=== PATIENT | female | born 1950 | race Caucasian/White ===

== ENCOUNTER → 2018-07-04 12:38 | Outpatient (CLI) | payer MEDICARE, SELFPAY ==
[2018-07-04 13:25] LABS: Add Manual Diff / Slide Review NO; Basophils Percent Auto 1.1 % (0-2); Eosinophils Percent Auto 2.4 % (2-4); Hematocrit 40.9 % (36-46); Hemoglobin 13.7 g/dL (12.0-16.0); Lymphocytes Percent Auto 34.2 % (25-40); Mean Corpuscular HGB Conc 33.4 % (30-36); Mean Corpuscular Volume 95.6 fL (80-100); Monocytes Percent Auto 7.5 % (3-14); Neutrophils Absolute Auto 3800 /uL (3000-5900); Neutrophils Percent Auto 54.8 % (50-75); Platelet Count 301 X10^3/uL (150-400); Red Blood Cell Count 4.28 X10^6/uL (4.0-5.2); Red Cell Distribution Width 14.4 % (11.6-14.8)
[2018-07-04 13:51] LABS: Alanine Aminotransferase 36 IU/L (9-52); Albumin 3.9 g/dL (3.5-5.0); Albumin Globulin Ratio 1.4 (1.0-2.8); Alkaline Phosphatase 68 U/L (38-126); Aspartate Aminotransferase 39 IU/L (14-36); BUN Creatinine Ratio 22.9 (6-22); Bilirubin Total 0.5 mg/dL (0.2-1.3); Blood Urea Nitrogen 16 mg/dL (7-17); Calcium 8.7 mg/dL (8.4-10.2); Carbon Dioxide 28 mmol/L (22-32); Chloride 105 mmol/L (98-107); Estimated Glomerular Filt Rate > 60.0 mL/min (>60); Globulin 2.8 g/dL (1.7-4.1); Glucose 92 mg/dL (80-110); HEMOLYSIS < 15 (0-50); Potassium 4.4 mmol/L (3.4-5.1); Sodium 144 mmol/L (137-145); Total Protein 6.7 g/dL (6.3-8.2)
[2018-07-04 13:52] LABS: C-Reactive Protein Quant < 0.5 mg/dL (<1.0)
== END ==
PROVIDERS: Family Provider Internal Medicine; Visit Provider Internal Medicine Rheumatology
DX: Z79.899 Other long term (current) drug therapy (principal)
CPT/HCPCS: 36415; 80053; 85025; 86140

== ENCOUNTER → 2018-07-17 10:18 | Outpatient (CLI) | payer MEDICARE, SELFPAY ==
--- NOTE | 2018-07-17 | DI.MG.S_ITS ---
BILATERAL DIGITAL SCREENING MAMMOGRAM 3D/2D WITH CAD: 07/17/2018 CLINICAL: Routine screening. Family history of breast cancer. Comparison is made to exams dated: 05/18/2017 mammogram, 03/06/2016 mammogram - [facility], and 03/02/2014 mammogram - [facility]. The tissue of both breasts is heterogeneously dense. This may lower the sensitivity of mammography. Current study was also evaluated with a Computer Aided Detection (CAD) system. No significant masses, calcifications, or other findings are seen in either breast. There has been no significant interval change. IMPRESSION: NEGATIVE There is no mammographic evidence of malignancy. A 1 year screening mammogram is recommended. This exam was interpreted at Station ID: [id number]. NOTE: For mammograms, a report in lay terms will be sent to the patient. Approximately 15% of breast malignancies will not be visualized mammographically. In the management of a palpable breast mass, a negative mammogram must not discourage biopsy of a clinically suspicious lesion. Electronically Signed By: Dolores jones/kristen:07/17/2018 10:49:25 letter sent: Normal Exam ACR BI-RADS Category 1: Negative 3341F
== END ==
PROVIDERS: Family Provider Internal Medicine
DX: Z12.31 Encounter for screening mammogram for malignant neoplasm of breast (principal); Z80.3 Family history of malignant neoplasm of breast
CPT/HCPCS: 77063; 77067

== ENCOUNTER → 2019-06-17 12:04 | Outpatient (CLI) | payer MEDICARE, SELFPAY ==
[2019-06-17 12:32] LABS: Add Manual Diff / Slide Review NO; Basophils Absolute Auto 100 /uL (0-100); Basophils Percent Auto 1.1 % (0-2); Eosinophils Absolute Auto 200 /uL (0-450); Eosinophils Percent Auto 2.9 % (2-4); Hematocrit 38.6 % (36-46); Hemoglobin 13.2 g/dL (12.0-16.0); Lymphocytes Absolute Auto 2400 /uL (1100-4500); Lymphocytes Percent Auto 36.9 % (25-40); Mean Corpuscular HGB Conc 34.2 % (30-36); Mean Corpuscular Hemoglobin 31.9 PG (26-34); Mean Corpuscular Volume 93.3 fL (80-100); Monocytes Absolute Auto 500 /uL (0-900); Monocytes Percent Auto 7.7 % (3-14); Neutrophils Absolute Auto 3400 /uL (1500-7000); Neutrophils Percent Auto 51.4 % (50-75); Platelet Count 256 X10^3/uL (150-400); Red Blood Cell Count 4.14 X10^6/uL (4.0-5.2); Red Cell Distribution Width 14.5 % (11.6-14.8); White Blood Cell Count 6.6 X10^3/uL (4.5-11.0)
[2019-06-17 12:53] LABS: Alanine Aminotransferase 31 IU/L (9-52); Albumin 3.7 g/dL (3.5-5.0); Albumin Globulin Ratio 1.4 (1.0-2.8); Alkaline Phosphatase 74 U/L (38-126); Aspartate Aminotransferase 31 IU/L (14-36); Bilirubin Total 0.5 mg/dL (0.2-1.3); Blood Urea Nitrogen 15 mg/dL (7-17); C-Reactive Protein Quant 0.5 mg/dL (<1.0); Calcium 9.3 mg/dL (8.4-10.2); Carbon Dioxide 29 mmol/L (22-32); Chloride 104 mmol/L (98-107); Estimated Glomerular Filt Rate > 60.0 mL/min (>60); Globulin 2.6 g/dL (1.7-4.1); Glucose 96 mg/dL (80-110); HEMOLYSIS < 15 (0-50); Potassium 4.3 mmol/L (3.4-5.1); Sodium 139 mmol/L (137-145); Total Protein 6.3 g/dL (6.3-8.2)
== END ==
PROVIDERS: Family Provider Internal Medicine; PCP Internal Medicine; Visit Provider Internal Medicine Rheumatology
DX: M05.79 Rheumatoid arthritis with rheumatoid factor of multiple sites without organ or systems involvement (principal); Z79.899 Other long term (current) drug therapy
CPT/HCPCS: 36415; 80053; 85025; 86140

== ENCOUNTER → 2019-06-30 07:52 | Outpatient (CLI) | payer MEDICARE, SELFPAY ==
--- NOTE | 2019-06-30 | DI.NM.S_ITS ---
PROCEDURE: NM GASTRIC EMPTYING STUDY RADIOPHARMACEUTICAL: 1.0 mCi Tc-99m sulfur colloid in an egg sandwich. INDICATIONS: Nausea with vomiting, unspecified TECHNIQUE: A Tc-99m labeled sulfur colloid labeled egg sandwich or oatmeal was served to the patient. Anterior and posterior planar images of the abdomen were obtained at 0 minutes and 30 minutes, then at hourly intervals up to 4 hours. The patient was upright and ambulating during the interval. COMPARISON: None. FINDINGS: The stomach has normal size, morphology, and position. There is normal emptying of solid gastric contents from the stomach by visual inspection. No gastroesophageal reflux is visualized. The percentage of tracer retained at specific time points are as follows: Time point Percent gastric retention Normal range 30 minutes 91% 70% or more 1 hour 67% 30% to 90% 2 hours 27% 60% or less 3 hours 6% 30% or less 4 hours - 10% or less IMPRESSION: Normal gastric emptying study. Dictated by: Lisha Boykin M.D. on 06/30/2019 at 13:17 Approved by: Lisha Boykin M.D. on 06/30/2019 at 13:20
== END ==
PROVIDERS: Family Provider Internal Medicine Rheumatology; PCP Internal Medicine; Visit Provider Internal Medicine
DX: R11.2 Nausea with vomiting, unspecified (principal)
CPT/HCPCS: 78264; A9541

== ENCOUNTER → 2019-09-16 12:10 | Outpatient (CLI) | payer MEDICARE, SELFPAY ==
[2019-09-16 13:29] LABS: Add Manual Diff / Slide Review NO; Basophils Absolute Auto 100 /uL (0-100); Basophils Percent Auto 1.9 % (0-2); Eosinophils Absolute Auto 200 /uL (0-450); Eosinophils Percent Auto 2.5 % (2-4); Hematocrit 38.9 % (36-46); Hemoglobin 13.1 g/dL (12.0-16.0); Lymphocytes Absolute Auto 2000 /uL (1100-4500); Lymphocytes Percent Auto 32.2 % (25-40); Mean Corpuscular HGB Conc 33.8 % (30-36); Mean Corpuscular Hemoglobin 32.1 PG (26-34); Monocytes Absolute Auto 500 /uL (0-900); Monocytes Percent Auto 8.7 % (3-14); Neutrophils Absolute Auto 3400 /uL (1500-7000); Neutrophils Percent Auto 54.7 % (50-75); Platelet Count 269 X10^3/uL (150-400); Red Blood Cell Count 4.09 X10^6/uL (4.0-5.2); White Blood Cell Count 6.2 X10^3/uL (4.5-11.0)
[2019-09-16 14:22] LABS: Alanine Aminotransferase 26 IU/L (<35); Albumin 3.6 g/dL (3.5-5.0); Albumin Globulin Ratio 1.2 (1.0-2.8); Alkaline Phosphatase 76 U/L (38-126); Aspartate Aminotransferase 33 IU/L (14-36); BUN Creatinine Ratio 24.3 (6-22); Bilirubin Total 0.4 mg/dL (0.2-1.3); Blood Urea Nitrogen 17 mg/dL (7-17); C-Reactive Protein Quant 0.6 mg/dL (<1.0); Calcium 9.1 mg/dL (8.4-10.2); Carbon Dioxide 27 mmol/L (22-32); Chloride 105 mmol/L (98-107); Estimated Glomerular Filt Rate > 60.0 mL/min (>60); Globulin 2.9 g/dL (1.7-4.1); Glucose 90 mg/dL (80-110); HEMOLYSIS < 15 (0-50); Potassium 5.1 mmol/L (3.4-5.1); Sodium 139 mmol/L (137-145); Total Protein 6.5 g/dL (6.3-8.2)
== END ==
PROVIDERS: PCP Internal Medicine; Visit Provider Internal Medicine Rheumatology
DX: M05.79 Rheumatoid arthritis with rheumatoid factor of multiple sites without organ or systems involvement (principal); Z79.899 Other long term (current) drug therapy
CPT/HCPCS: 36415; 80053; 85025; 86140

== ENCOUNTER → 2020-01-19 07:14 | Outpatient (CLI) | payer MEDICARE, SELFPAY ==
[2020-01-19 07:39] LABS: Add Manual Diff / Slide Review NO; Basophils Absolute Auto 100 /uL (0-100); Basophils Percent Auto 0.8 % (0-2); Eosinophils Absolute Auto 200 /uL (0-450); Eosinophils Percent Auto 2.9 % (2-4); Hematocrit 42.3 % (36-46); Hemoglobin 14.2 g/dL (12.0-16.0); Lymphocytes Absolute Auto 3500 /uL (1100-4500); Lymphocytes Percent Auto 41.3 % (25-40); Mean Corpuscular HGB Conc 33.7 % (30-36); Mean Corpuscular Hemoglobin 32.1 PG (26-34); Mean Corpuscular Volume 95.2 fL (80-100); Monocytes Absolute Auto 600 /uL (0-900); Monocytes Percent Auto 7.7 % (3-14); Neutrophils Absolute Auto 4000 /uL (1500-7000); Neutrophils Percent Auto 47.3 % (50-75); Platelet Count 311 X10^3/uL (150-400); Red Blood Cell Count 4.44 X10^6/uL (4.0-5.2); Red Cell Distribution Width 14.7 % (11.6-14.8); White Blood Cell Count 8.4 X10^3/uL (4.5-11.0)
[2020-01-19 07:54] LABS: Alanine Aminotransferase 27 IU/L (<35); Albumin Globulin Ratio 1.3 (1.0-2.8); Alkaline Phosphatase 93 U/L (38-126); Aspartate Aminotransferase 41 IU/L (14-36); BUN Creatinine Ratio 26.2 (6-22); Bilirubin Total 0.4 mg/dL (0.2-1.3); Blood Urea Nitrogen 17 mg/dL (7-17); Carbon Dioxide 25 mmol/L (22-32); Chloride 106 mmol/L (98-107); Estimated Glomerular Filt Rate > 60.0 mL/min (>60); Glucose 111 mg/dL (80-110); HEMOLYSIS < 15 (0-50); Potassium 4.5 mmol/L (3.4-5.1); Sodium 139 mmol/L (137-145)
[2020-01-19 07:55] LABS: C-Reactive Protein Quant < 0.5 mg/dL (<1.0)
== END ==
PROVIDERS: PCP Internal Medicine; Referring Provider Internal Medicine Rheumatology; Visit Provider Internal Medicine Rheumatology
DX: M05.79 Rheumatoid arthritis with rheumatoid factor of multiple sites without organ or systems involvement (principal); Z79.899 Other long term (current) drug therapy
CPT/HCPCS: 36415; 80053; 85025; 86140

== ENCOUNTER → 2020-02-17 08:07 | Outpatient (CLI) | payer MEDICARE, SELFPAY ==
--- NOTE | 2020-02-17 | DI.RAD.S_ITS ---
PROCEDURE: XR LUMBAR SPINE 2-3V INDICATIONS: Sciatica, right side TECHNIQUE: 3 views of the lumbar spine were acquired. COMPARISON: None. FINDINGS: Bones: 5 [id number] vertebrae are present. There is normal bony alignment. No acute vertebral body compression fractures. Multilevel spondylitic changes and facet arthrosis. Findings are most severe at L5-S1. No suspicious bony lesions. Soft tissues: Overlying bowel gas pattern is normal. No suspicious soft tissue calcifications. IMPRESSION: Lumbar spine without acute radiographic abnormalities. Multilevel lumbar spondylosis most severe at L5-S1. Dictated by: Zain Ren M.D. on 02/17/2020 at 10:01 Approved by: Zain Ren M.D. on 02/17/2020 at 10:02
== END ==
PROVIDERS: PCP Internal Medicine; Referring Provider Internal Medicine; Visit Provider Internal Medicine
DX: M47.27 Other spondylosis with radiculopathy, lumbosacral region (principal)
CPT/HCPCS: 72100

== ENCOUNTER → 2020-04-15 14:06 | Outpatient (CLI) | payer MEDICARE, SELFPAY ==
[2020-04-15 15:18] LABS: Add Manual Diff / Slide Review NO; Basophils Absolute Auto 100 /uL (0-100); Eosinophils Absolute Auto 200 /uL (0-450); Eosinophils Percent Auto 2.4 % (2-4); Hematocrit 40.8 % (36-46); Hemoglobin 13.7 g/dL (12.0-16.0); Lymphocytes Absolute Auto 2900 /uL (1100-4500); Lymphocytes Percent Auto 30.3 % (25-40); Mean Corpuscular HGB Conc 33.5 % (30-36); Mean Corpuscular Hemoglobin 31.4 PG (26-34); Mean Corpuscular Volume 93.7 fL (80-100); Monocytes Absolute Auto 900 /uL (0-900); Neutrophils Absolute Auto 5500 /uL (1500-7000); Neutrophils Percent Auto 57.3 % (50-75); Platelet Count 273 X10^3/uL (150-400); Red Blood Cell Count 4.36 X10^6/uL (4.0-5.2); Red Cell Distribution Width 13.4 % (11.6-14.8); White Blood Cell Count 9.6 X10^3/uL (4.5-11.0)
[2020-04-15 15:54] LABS: Alanine Aminotransferase 23 IU/L (<35); Albumin 3.4 g/dL (3.5-5.0); Albumin Globulin Ratio 1.4 (1.0-2.8); Alkaline Phosphatase 79 U/L (38-126); Aspartate Aminotransferase 34 IU/L (14-36); BUN Creatinine Ratio 18.5 (6-22); Bilirubin Total 0.4 mg/dL (0.2-1.3); Blood Urea Nitrogen 12 mg/dL (7-17); C-Reactive Protein Quant 0.6 mg/dL (<1.0); Calcium 8.8 mg/dL (8.4-10.2); Carbon Dioxide 29 mmol/L (22-32); Chloride 106 mmol/L (98-107); Estimated Glomerular Filt Rate > 60.0 mL/min (>60); Globulin 2.5 g/dL (1.7-4.1); Glucose 89 mg/dL (80-110); HEMOLYSIS < 15 (0-50); Potassium 4.2 mmol/L (3.4-5.1); Sodium 138 mmol/L (137-145); Total Protein 5.9 g/dL (6.3-8.2)
== END ==
PROVIDERS: PCP Internal Medicine; Referring Provider Internal Medicine Rheumatology; Visit Provider Internal Medicine Rheumatology
DX: Z79.899 Other long term (current) drug therapy (principal); M05.79 Rheumatoid arthritis with rheumatoid factor of multiple sites without organ or systems involvement
CPT/HCPCS: 36415; 80053; 85025; 86140

== ENCOUNTER → 2020-07-23 12:33 | Outpatient (CLI) | payer MEDICARE, SELFPAY ==
--- NOTE | 2020-07-23 | DI.MG.S_ITS ---
BILATERAL DIGITAL SCREENING MAMMOGRAM 3D/2D WITH CAD: 07/23/2020 CLINICAL: Routine screening. Family history of breast cancer. Comparison is made to exams dated: 07/17/2018 mammogram, 05/18/2017 mammogram, and 03/06/2016 mammogram - [facility]. The tissue of both breasts is heterogeneously dense. This may lower the sensitivity of mammography. Current study was also evaluated with a Computer Aided Detection (CAD) system. No significant masses, calcifications, or other findings are seen in either breast. There has been no significant interval change. IMPRESSION: NEGATIVE There is no mammographic evidence of malignancy. A 1 year screening mammogram is recommended. This exam was interpreted at Station ID: [id number]. NOTE: For mammograms, a report in lay terms will be sent to the patient. Approximately 15% of breast malignancies will not be visualized mammographically. In the management of a palpable breast mass, a negative mammogram must not discourage biopsy of a clinically suspicious lesion. Electronically Signed By: Carter Deshpande acr/kristen:07/25/2020 19:26:01 letter sent: Normal Exam ACR BI-RADS Category 1: Negative 3341F
== END ==
PROVIDERS: PCP Internal Medicine; Referring Provider Internal Medicine; Visit Provider Internal Medicine
DX: Z12.31 Encounter for screening mammogram for malignant neoplasm of breast (principal); Z80.3 Family history of malignant neoplasm of breast
CPT/HCPCS: 77063; 77067

== ENCOUNTER → 2020-07-23 12:58 | Outpatient (CLI) | payer MEDICARE, SELFPAY ==
[2020-07-23 13:58] LABS: Add Manual Diff / Slide Review NO; Basophils Absolute Auto 100 /uL (0-100); Basophils Percent Auto 1.1 % (0-2); Eosinophils Absolute Auto 400 /uL (0-450); Eosinophils Percent Auto 4.1 % (2-4); Hematocrit 41.4 % (36-46); Hemoglobin 13.7 g/dL (12.0-16.0); Lymphocytes Absolute Auto 2700 /uL (1100-4500); Lymphocytes Percent Auto 31.1 % (25-40); Mean Corpuscular HGB Conc 33.2 % (30-36); Mean Corpuscular Hemoglobin 30.6 PG (26-34); Mean Corpuscular Volume 92.2 fL (80-100); Monocytes Absolute Auto 600 /uL (0-900); Monocytes Percent Auto 7.4 % (3-14); Neutrophils Absolute Auto 4800 /uL (1500-7000); Neutrophils Percent Auto 56.3 % (50-75); Platelet Count 308 X10^3/uL (150-400); Red Blood Cell Count 4.49 X10^6/uL (4.0-5.2); Red Cell Distribution Width 14.1 % (11.6-14.8); White Blood Cell Count 8.6 X10^3/uL (4.5-11.0)
[2020-07-23 16:06] LABS: Alanine Aminotransferase 22 IU/L (<35); Albumin 3.4 g/dL (3.5-5.0); Albumin Globulin Ratio 1.4 (1.0-2.8); Alkaline Phosphatase 90 U/L (38-126); Aspartate Aminotransferase 35 IU/L (14-36); BUN Creatinine Ratio 17.3 (6-22); Bilirubin Total 0.4 mg/dL (0.2-1.3); Blood Urea Nitrogen 14 mg/dL (7-17); C-Reactive Protein Quant 0.5 mg/dL (<1.0); Calcium 8.8 mg/dL (8.4-10.2); Carbon Dioxide 28 mmol/L (22-32); Chloride 107 mmol/L (98-107); Estimated Glomerular Filt Rate > 60.0 mL/min (>60); Globulin 2.4 g/dL (1.7-4.1); Glucose 98 mg/dL (80-110); HEMOLYSIS < 15 (0-50); Potassium 4.5 mmol/L (3.4-5.1); Sodium 137 mmol/L (137-145); Total Protein 5.8 g/dL (6.3-8.2)
== END ==
PROVIDERS: PCP Internal Medicine; Referring Provider Internal Medicine Rheumatology; Visit Provider Internal Medicine Rheumatology
DX: M05.79 Rheumatoid arthritis with rheumatoid factor of multiple sites without organ or systems involvement (principal); Z79.899 Other long term (current) drug therapy
CPT/HCPCS: 36415; 80053; 85025; 86140

== ENCOUNTER → 2020-10-15 14:23 | Outpatient (CLI) | payer MEDICARE, SELFPAY ==
[2020-10-15 15:46] LABS: Add Manual Diff / Slide Review NO; Basophils Absolute Auto 100 /uL (0-100); Basophils Percent Auto 1.2 % (0-2); Eosinophils Absolute Auto 200 /uL (0-450); Eosinophils Percent Auto 1.8 % (2-4); Hematocrit 39.5 % (36-46); Hemoglobin 13.1 g/dL (12.0-16.0); Lymphocytes Absolute Auto 3000 /uL (1100-4500); Lymphocytes Percent Auto 26.1 % (25-40); Mean Corpuscular HGB Conc 33.2 % (30-36); Mean Corpuscular Hemoglobin 30.8 PG (26-34); Mean Corpuscular Volume 92.6 fL (80-100); Monocytes Absolute Auto 800 /uL (0-900); Monocytes Percent Auto 6.5 % (3-14); Neutrophils Absolute Auto 7500 /uL (1500-7000); Neutrophils Percent Auto 64.4 % (50-75); Platelet Count 256 X10^3/uL (150-400); Red Blood Cell Count 4.27 X10^6/uL (4.0-5.2); Red Cell Distribution Width 13.4 % (11.6-14.8); White Blood Cell Count 11.6 X10^3/uL (4.5-11.0)
[2020-10-15 16:06] LABS: Alanine Aminotransferase 17 IU/L (<35); Albumin 3.5 g/dL (3.5-5.0); Albumin Globulin Ratio 1.3 (1.0-2.8); Alkaline Phosphatase 83 U/L (38-126); Amylase 105 U/L (30-110); Aspartate Aminotransferase 30 IU/L (14-36); BUN Creatinine Ratio 18.4 (6-22); Bilirubin Total 0.2 mg/dL (0.2-1.3); Blood Urea Nitrogen 14 mg/dL (7-17); Calcium 8.5 mg/dL (8.4-10.2); Carbon Dioxide 30 mmol/L (22-32); Chloride 103 mmol/L (98-107); Estimated Glomerular Filt Rate > 60.0 mL/min (>60); Globulin 2.6 g/dL (1.7-4.1); Glucose 115 mg/dL (80-110); HEMOLYSIS < 15 (0-50); Lipase 61 U/L (23-300); Potassium 4.1 mmol/L (3.4-5.1); Sodium 136 mmol/L (137-145); Total Protein 6.1 g/dL (6.3-8.2)
[2020-10-15 16:18] LABS: C-Reactive Protein Quant < 0.5 mg/dL (<1.0)
== END ==
PROVIDERS: PCP Physician Assistant; Referring Provider Internal Medicine Rheumatology; Visit Provider Internal Medicine Rheumatology
DX: M05.79 Rheumatoid arthritis with rheumatoid factor of multiple sites without organ or systems involvement (principal); Z79.899 Other long term (current) drug therapy; R11.2 Nausea with vomiting, unspecified
CPT/HCPCS: 36415; 80053; 82150; 83690; 85025; 86140

== ENCOUNTER → 2020-10-20 11:26 | Outpatient (CLI) | payer MEDICARE, SELFPAY ==
--- NOTE | 2020-10-20 12:25 | DI.CT.S_ITS ---
PROCEDURE: CT ABDOMEN PELVIS W CON INDICATIONS: Nausea with vomiting, unspecified TECHNIQUE: After the administration of oral and intravenous contrast, 5 mm thick sections acquired from the diaphragms to the symphysis. 5 mm thick coronal and sagittal reformats were performed. For radiation dose reduction, the following was used: automated exposure control, adjustment of mA and/or kV according to patient size. COMPARISON: CT, PE STUDY (CTA CHEST), 08/26/2014, 0:00. FINDINGS: Image quality: Excellent. ABDOMEN: Lung bases: Patchy airspace opacity in the right middle lobe and lingula partially visualized. Opacity was seen in this region on the CT from 2014. There is possible bronchiectasis and mucous plugging. Heart size is normal. Small hiatal hernia. Solid organs: Liver is normal in size and enhancement. Gallbladder is unremarkable. Biliary system is non-dilated. Pancreas enhances normally. Spleen is normal in size and enhancement. No definite adrenal nodules. Kidneys are normal in size and enhancement, without hydronephrosis. Peritoneum and bowel: Stomach is not distended. No small bowel obstruction. The appendix is surgically absent. Prominent stool throughout the colon. No free fluid or air. Nodes and vessels: No retroperitoneal or mesenteric adenopathy. Aorta and inferior vena cava are normal in caliber. Miscellaneous: No ventral hernias. PELVIS: Genitourinary: Bladder is unremarkable. Uterus is absent. No free fluid. Miscellaneous: No inguinal hernias or adenopathy. Bones: No suspicious bony lesions. No vertebral body compression fractures. IMPRESSION: 1. Right middle lobe and lingula patchy airspace opacity. There may be mucous plugging and bronchiectasis. Suspect chronic infectious/inflammatory etiology. -Recommend a CT of the chest if not recently performed for further evaluation. 2. No source identified for the patient's nausea and vomiting. No small bowel obstruction. No free fluid. 3. Prominent stool in the colon. Dictated by: Abdelrahman Gloria M.D. on 10/20/2020 at 13:51 Approved by: Abdelrahman Gloria M.D. on 10/20/2020 at 14:00
== END ==
PROVIDERS: PCP Physician Assistant; Referring Provider Physician Assistant; Visit Provider Physician Assistant
DX: R11.2 Nausea with vomiting, unspecified (principal)
CPT/HCPCS: 74177

== ENCOUNTER → 2020-11-15 13:50 | Outpatient (CLI) | payer MEDICARE, SELFPAY ==
--- NOTE | 2020-11-15 | DI.RAD.S_ITS ---
PROCEDURE: XR HAND RT MIN 3V INDICATIONS: Rheumatoid arthritis with rheumatoid factor of multiple site TECHNIQUE: 3 views of the hand(s) acquired. COMPARISON: [facility], [facility]HA, HAND 3V RIGHT, 09/29/2016, 12:07. [facility], [facility], HAND 3V LEFT, 09/29/2016, 12:07. FINDINGS: Bones: No fracture. Marginal lucency seen at the PIP joint of the little finger. Soft tissues: No suspicious soft tissue calcifications. IMPRESSION: Small marginal lucency seen at the PIP joint of the little finger. This appears new since 09/29/16. Dictated by: Sherman Tovar M.D. on 11/15/2020 at 15:58 Approved by: Sherman Tovar M.D. on 11/15/2020 at 16:01
--- NOTE | 2020-11-15 | DI.RAD.S_ITS ---
PROCEDURE: XR HAND LT MIN 3V INDICATIONS: Rheumatoid arthritis with rheumatoid factor of multiple site TECHNIQUE: 3 views of the hand(s) acquired. COMPARISON: [facility], , HAND 3V LEFT, 09/29/2016, 12:07. FINDINGS: Bones: No fracture. Scattered degenerative subchondral sclerosis and spurring. Small marginal lucency seen at the DIP joints of the index finger. Additional possible subtle marginal lucency seen at the base of the 5th metacarpal. Soft tissues: No suspicious soft tissue calcifications. IMPRESSION: Small marginal lucencies seen at the DIP joint of the index finger, and at the base of the 5th metacarpal. Overall, no definite interval change since 09/29/16. Dictated by: Sherman Tovar M.D. on 11/15/2020 at 15:54 Approved by: Sherman Tovar M.D. on 11/15/2020 at 15:58
== END ==
LOC: PHYS 13:52 → RAD 13:56
PROVIDERS: PCP Physician Assistant; Referring Provider Nurse Practitioner Family; Visit Provider Nurse Practitioner Family
DX: M05.79 Rheumatoid arthritis with rheumatoid factor of multiple sites without organ or systems involvement (principal)
CPT/HCPCS: 73130

== ENCOUNTER → 2021-01-04 07:02 | Outpatient (CLI) | payer MEDICARE, SELFPAY ==
[2021-01-04 12:49] LABS: COVID19 -Nasal RAPID Negative (Negative)
== END ==
PROVIDERS: PCP Physician Assistant; Visit Provider Physical Medicine & Rehabilitation
DX: Z20.822 Contact with and (suspected) exposure to COVID-19 (principal)
CPT/HCPCS: 87635; C9803

== ENCOUNTER 2021-01-06 07:32 | Outpatient (CLI) | payer MEDICARE, SELFPAY ==
[2021-01-06] VITALS (8 sets, daily range): BP systolic 106–141; BP diastolic 58–78; PULSE 79–88; RESP 16–24; TEMP 36.6; O2SAT 100
--- NOTE | 2021-01-06 07:37 | DI.RAD.S_ITS ---
PROCEDURE: PAIN L/S TRANSFORAMINAL INJECT INDICATIONS: SPONDYLOSIS COMPARISON: None. FINDINGS: Fluoroscopic spot filming was performed to verify placement of spinal needles at the L4-L5 level(s), as labeled on the films. Appropriate location(s) of the needle tip(s) was confirmed by injection of iodinated contrast. Dictated by: Sherman Tovar M.D. on 01/06/2021 at 10:36 Approved by: Sherman Tovar M.D. on 01/06/2021 at 10:36
[2021-01-06] MEDS: MIDAZOLAM 5 MG/5 ML VIAL IV (08:35)
[2021-01-06] MEDS: BUPIVACAINE 0.25% (PF) VIAL 2 ML INJ (08:40)
[2021-01-06] MEDS: IOPAMIDOL 15 ML VIAL 3 ML INJ (08:41)
[2021-01-06] MEDS: BETAMETHASONE 30 MG/5 ML MDV 6 MG INJ (08:41)
[2021-01-06] MEDS: DEXAMETHASONE 10 MG/ML VIAL 20 MG INJ (08:42)
--- NOTE | 2021-01-06 08:44 | P.PCN_ITS ---
Date/Time/Diagnoses Date of procedure: 01/06/21 Time of procedure: 08:44 Pre-procedure diagnosis: 1. FORAMINAL STENOSIS WITH LE SYMPTOMS Post-procedure diagnosis: same Procedure Notes Procedure: 1. FLUOROSCOPICALLY GUIDED CONTRAST CONTROLLED TRANSFORAMINAL EPIDURAL STEROID INJECTION - RIGHT L4/5 TFESI Indications: Keshia is referred by [facility] for treatment of Foraminal Stenosis with Right LE Symptoms Physician: Mayco Mead Total Fluoroscopy time (seconds): 8 Total sedation minutes: 12 Complications: none Procedure in detail & Post-procedure care: FINDINGS Foraminal Nerve Root Compression secondary to disc disease and facet hypertrophy DESCRIPTION OF PROCEDURE Following review of allergy and review of potential side effects and complications, including, but not necessarily limited to, infection, allergic reaction, local tissue breakdown, stroke, temporary or permanent nerve injury, paralysis, and possible , the patient indicated that the patient understood and agreed to proceed. An informed consent document was signed by the patient, witnessed by a nurse, and placed in the patient's chart. Additionally, other treatment options including medications, modalities, and physical therapy were reviewed with the patient. After review of previous anaesthesic history and IV conscious sedation the patient was deemed safe to proceed with today?s procedure with IV conscious sedation as ASA class II designation. Safety time-out was performed to confirm patient ID, procedure to be performed and site of procedure. IV sedation was accomplished with a combination of 3mg of Versed was administered by the RN after DO order, titrated to patient comfort during the course of the procedure while the patient remained responsive to all verbal commands In the prone position following sterile prep and drape of the lumbar region, the right L4/5 posterior neuroforamen was identified fluoroscopically. The skin was anesthetized via a 25-gauge 1.5-inch needle with 1% lidocaine solution. At this point, a 25-gauge 3.5-inch spinal needle was atraumatically introduced and advanced under fluoroscopic guidance through the posterior right L4/5 neuroforamen to approximately the anterior aspect of the canal. Depth was confirmed on lateral view. Following negative aspiration, injection of approximately 1.5cc of Isovue 200 under live fluoroscopy in the AP view con firmed excellent flow along the nerve root, into the epidural space without vascular or intrathecal uptake observed Radiological data, including multiple fluoroscopic views of the lumbosacral spine, reveal a spinal needle at the right L4/5 posterior neuroforamen. Subsequent views show flow of contrast material flowing superiorly and inferiorly along the nerve root confirming epidural flow. Subsequently, a test dose of 1.5 cc of 1% lidocaine solution was administered and patient was observed for two minutes for signs or symptoms of complications, including abdominal pain, shortness of breath, bilateral upper or lower extremity weakness, nausea and vomiting, prior to steroid injection. At this point, a total of 3cc or 20mg of dexamethasone and 6mg of betamethasone was injected without incident. The procedure tolerated the procedure well without signs or symptoms of complications prior to transfer to the recovery area continued monitoring without incident. The patient was then transferred to the recovery area where they were observed for an appropriate time after the injection. The patient reported a VAS score of 7 prior to the procedure and a post- procedure VAS of 0. POST OP INSTRUCTIONS The patient was provided a Pain Log to continue to record their response to the target-specific procedure prior to follow-up visit with their referring p hysician. Additionally, specific post-injection care instructions and a contact number to our office were provided if concerns arise regarding possible complications associated with the procedure are suspected.
== END 2021-01-06 09:06 | disposition home or self-care (01) ==
LOC: RAD 07:36
PROVIDERS: PCP Physician Assistant; Referring Provider Physical Medicine & Rehabilitation; Visit Provider Physical Medicine & Rehabilitation
DX: M48.061 Spinal stenosis, lumbar region without neurogenic claudication (principal); M51.16 Intervertebral disc disorders with radiculopathy, lumbar region
CPT/HCPCS: 64483; 99152; J0702; J1100; J2250; J3010

== ENCOUNTER 2021-03-16 13:19 | Outpatient (RCR) | payer MEDICARE, SELFPAY ==
--- NOTE | 2021-03-16 14:30 | PT.OPPOC ---
Physical, Occupational & Speech Therapy At [facility] Current Diagnoses Benign paroxysmal vertigo, unspecified ear (03/16/21) Dizziness and giddiness (03/16/21) Visit Care Team Role Provider Type Joanne Cifuentes PA-C Attending Provider Non-Staff Primary Care Provider Referring Provider Specialty: Internal Medicine Address: [address] [place] [address], [facility] Email: [email or web address] Of Care PT-OP-T Assessment and Plan Start: 03/16/21 17:39 Freq: Status: Active Protocol: Document 03/16/21 13:45 DCW (Rec: 03/17/21 09:43 DCW [id number]) Physical Therapy Assessment Rehab Potential Rehabilitation Potential Excellent Evaluation Complexity Number of Personal Factors/Comorbidities 0 Number of Body Systems Impaired 1-2 Clinical Presentation at Evaluation Stable Impairments Impairments Balance,Functional Mobility, Vestibular Goals Two Impairment Pt scores a 16% on the DHI Short Term Goal (STG) Pt to score <6% on DHI to show decreased disability STG Duration 04/16/21 One Impairment Pt reports dizziness/nausea with positional changes Short Term Goal (STG) Pt to perform all bed mobility with no vertiginous symptoms STG Duration 04/16/21 Assessment Summary Assessment Pt presented today with an unremarkable vestibular examination. Pt's , however was able to produce a video on his phone of pt when she was having severe geotropic nystagmus on her left side. They were both in agreement that her left side was always significantly worse . With this information and her history, therapist felt it was worthwhile to perform a left-sided Gufoni maneuver for left horizontal canal canalithiasis. Pt and noted that it was similar to what they had been doing previously, however they then described a right-sided Gufoni , which may be indicative of why they were struggling to clear it. Pt was educated on BPPV, expectations for treatment, and possible recurrence (BPPV has a ~50% recurrence rate in the five years following treatment). Pt to return in ~1 week for a follow-up appointment, and intermittently afterward as indicated for treatment of BPPV. Physical Therapy Plan Frequency and Duration Frequency of Treatment 1x/Week Duration of Treatment One Month Plan of Care Start Date 03/16/21 Plan of Care End Date 04/16/21 Therapeutic Interventions Therapeutic Interventions Balance Training,Canalithic Repositioning,Therapeutic Exercises,Vestibular Rehabilitation Next Visit Focus/Plan Next Note Type Treatment Note Next Visit Plan Positional testing, CRM as indicated Plan of Care Dates Plan of Care Start Date 03/16/21 Plan of Care End Date 04/16/21 Electronically Signed by: Herman Benitez, PT 03/17/21 [id number] Please Sign and Return: I have reviewed this Plan of Care and certify that the skilled therapy services above are required to meet the patient?s needs. Physician Signature Date Printed Name and Credentials Clinical Instructor Signature Printed Name and Credentials
--- NOTE | 2021-03-16 14:30 | PT.OIE ---
Current Diagnoses Benign paroxysmal vertigo, unspecified ear (03/16/21) Dizziness and giddiness (03/16/21) Past Medical History (Last Reviewed 07/26/20 @ 12:03 by Mayco Mead DO) H/O removal of neck cyst Herniated nucleus pulposus, L4-5 Lumbosacral radiculopathy at L5 Past Surgical History (Last Reviewed 07/26/20 @ 12:03 by Mayco Mead DO) H/O removal of neck cyst Visit Care Team Role Provider Type Joanne Cifuentes PA-C Attending Provider Non-Staff Primary Care Provider Referring Provider Specialty: Internal Medicine Address: [address] [place] [address] Email: [email or web address] [facility] Initial Evaluation PT-OP-A Visit Information Start: 03/16/21 17:39 Freq: Status: Active Protocol: Document 03/16/21 13:45 DCW (Rec: 03/17/21 09:43 DCW [id number]) Out-Patient Physical Therapy Visit Information Visit Information Visit Type Initial Evaluation Visit Start Time 13:45 Visit Stop Time 14:30 Total Visit Minutes 45 Visit Number 1 Number of TURN SEWER Visits 0 Evaluation Information Evaluation Date 03/16/21 PT-OP-B Current Condition Start: 03/16/21 17:39 Freq: Status: Active Protocol: Document 03/16/21 13:45 DCW (Rec: 03/17/21 09:43 DCW [id number]) Current Condition History of Current Condition Onset Date A few months Current Complaints Position-dependent vertigo History of Current Condition Pt is a 70 year old female complaining of a multiple- month history of motion- induced vertigo and nausea. Pt reports the dizziness lasts a few seconds, however she then frequently feels nauseated for hours afterward. Symptoms are provoked by changing positions in bed, bending over , or looking up. Pt reports she has been seen at a different PT clinic for BPPV treatment over six visits, however her dizziness was not able to be fixed, and it was recommended she try this clinic. Pt denies recent hearing changes, diplopia, dysarthria, discoordination, or decreased mentation/ consciousness. Pt reports symptoms are waxing/waning in nature, and even notes that she has actually felt better the last few days after a camping trip. Pt denies hx of HTN, hyperlipidemia, diabetes, arrhythmia, head trauma, seizure, migraines, neck problems, CVA, anxiety/panic disorders, depression, or excessive smoking or drinking. Prior Treatments and Tests Six visits for BPPV management at [facility] Treatment Goals Patient/Caregiver Goals Eliminate dizziness PT-OP-C Subjective Start: 03/16/21 17:39 Freq: Status: Active Protocol: Document 03/16/21 13:45 DCW (Rec: 03/17/21 09:43 DCW [id number]) OP-PT Subjective Patient Comments Patient Comments I had positional vertigo about five and a half years ago, but it resolved really quickly with PT. Patient Reported Progress Same Patient Questionnaires Dizziness Handicap Inventory DHI Score 16% PT-OP-O Vestibular Start: 03/16/21 17:39 Freq: Status: Active Protocol: Document 03/16/21 13:45 DCW (Rec: 03/17/21 09:43 DCW [id number]) Vestibular Assessment Screening Tests Vestibular Artery Screen Negative Auditory Tests Villegas Test Within normal limits Rinne Test Negative Air Conduction Results Equal Visual Testing Smooth Pursuits Horizontal WNL Smooth Pursuits Vertical WNL Saccades Horizontal WNL Heave Test Negative Thrust Head Negative Positional Testing [place]-Hallpike Negative Left,Negative Right Rolling Test Negative Left,Negative Right Supine to Sit Negative Sit to Supine Negative PT-OP-Q Treatments Start: 03/16/21 17:39 Freq: Status: Active Protocol: Document 03/16/21 13:45 DCW (Rec: 03/17/21 09:43 DCW [id number]) Canalithic Repositioning BPPV Treatment Gufoni Affected Canal(s) Left Horizontal? Reps x1 PT-OP-T Assessment and Plan Start: 03/16/21 17:39 Freq: Status: Active Protocol: Document 03/16/21 13:45 DCW (Rec: 03/17/21 09:43 DCW [id number]) Physical Therapy Assessment Rehab Potential Rehabilitation Potential Excellent Evaluation Complexity Number of Personal Factors/Comorbidities 0 Number of Body Systems Impaired 1-2 Clinical Presentation at Evaluation Stable Impairments Impairments Balance,Functional Mobility, Vestibular Goals Two Impairment Pt scores a 16% on the DHI Short Term Goal (STG) Pt to score <6% on DHI to show decreased disability STG Duration 04/16/21 One Impairment Pt reports dizziness/nausea with positional changes Short Term Goal (STG) Pt to perform all bed mobility with no vertiginous symptoms STG Duration 04/16/21 Assessment Summary Assessment Pt presented today with an unremarkable vestibular examination. Pt's , however was able to produce a video on his phone of pt when she was having severe geotropic nystagmus on her left side. They were both in agreement that her left side was always significantly worse . With this information and her history, therapist felt it was worthwhile to perform a left-sided Gufoni maneuver for left horizontal canal canalithiasis. Pt and noted that it was similar to what they had been doing previously, however they then described a right-sided Gufoni , which may be indicative of why they were struggling to clear it. Pt was educated on BPPV, expectations for treatment, and possible recurrence (BPPV has a ~50% recurrence rate in the five years following treatment). Pt to return in ~1 week for a follow-up appointment, and intermittently afterward as indicated for treatment of BPPV. Physical Therapy Plan Frequency and Duration Frequency of Treatment 1x/Week Duration of Treatment One Month Plan of Care Start Date 03/16/21 Plan of Care End Date 04/16/21 Therapeutic Interventions Therapeutic Interventions Balance Training,Canalithic Repositioning,Therapeutic Exercises,Vestibular Rehabilitation Next Visit Focus/Plan Next Note Type Treatment Note Next Visit Plan Positional testing, CRM as indicated
--- NOTE | 2021-10-20 10:03 | PT.OPDS ---
Current Diagnoses Benign paroxysmal vertigo, unspecified ear (03/16/21) Dizziness and giddiness (03/16/21) Visit Care Team Role Provider Type Joanne Cifuentes PA-C Attending Provider Non-Staff Primary Care Provider Referring Provider Specialty: Internal Medicine Address: [address] [place] [address], [facility] Email: [email or web address] Visit Number Visit Number 1 Discharge Summary PT-OP-B Current Condition Start: 03/16/21 17:39 Freq: Status: Active Protocol: Document 03/16/21 13:45 DCW (Rec: 03/17/21 09:43 DCW [id number]) Current Condition History of Current Condition Onset Date A few months Current Complaints Position-dependent vertigo History of Current Condition Pt is a 70 year old female complaining of a multiple- month history of motion- induced vertigo and nausea. Pt reports the dizziness lasts a few seconds, however she then frequently feels nauseated for hours afterward. Symptoms are provoked by changing positions in bed, bending over , or looking up. Pt reports she has been seen at a different PT clinic for BPPV treatment over six visits, however her dizzines was not able to be fixed, and it was recommended she try this clinic. Pt denies recent hearing changes, diplopia, dysarthria, discoordination, or decreased mentation/ consciousness. Pt reports symptoms are waxing/waning in nature, and even notes that she has actually felt better the last few days after a camping trip. Pt denies hx of HTN, hyperlipidemia, diabetes, arrhythmia, head trauma, seizure, migraines, neck problems, CVA, anxiety/panic disorders, depression, or excessive smoking or drinking. Prior Treatments and Tests Six visits for BPPV management at [facility] Treatment Goals Patient/Caregiver Goals Eliminate dizziness PT-OP-C Subjective Start: 03/16/21 17:39 Freq: Status: Active Protocol: Document 03/16/21 13:45 DCW (Rec: 03/17/21 09:43 DCW [id number]) OP-PT Subjective Patient Comments Patient Comments I had positional vertigo about five and a half years ago, but it resolved really quickly with PT. Patient Reported Progress Same Patient Questionnaires Dizziness Handicap Inventory DHI Score 16% PT-OP-O Vestibular Start: 03/16/21 17:39 Freq: Status: Active Protocol: Document 03/16/21 13:45 DCW (Rec: 03/17/21 09:43 DCW [id number]) Vestibular Assessment Screening Tests Vestibular Artery Screen Negative Auditory Tests Villegas Test Within normal limits Rinne Test Negative Air Conduction Results Equal Visual Testing Smooth Pursuits Horizontal WNL Smooth Pursuits Vertical WNL Saccades Horizontal WNL Heave Test Negative Thrust Head Negative Positional Testing [place]-Hallpike Negative Left,Negative Right Rolling Test Negative Left,Negative Right Supine to Sit Negative Sit to Supine Negative PT-OP-T Assessment and Plan Start: 03/16/21 17:39 Freq: Status: Active Protocol: Document 10/20/21 10:03 DCW (Rec: 10/20/21 10:03 DCW [id number]) Physical Therapy Assessment Assessment Summary Assessment Pt canceled last scheduled visit, did not reschedule, has now not been seen in more than seven months. Pt will be discharged from skilled PT at this time, will require a new referral in order to return Physical Therapy Plan Discharge Physical Therapy Discharge Reasons No Longer Attending PT Next Visit Focus/Plan Next Note Type Discharge Summary
== END 2021-10-24 13:39 ==
LOC: PHYS 13:19
PROVIDERS: PCP Physician Assistant; Referring Provider Physician Assistant; Visit Provider Physician Assistant
DX: H81.10 Benign paroxysmal vertigo, unspecified ear (principal)
CPT/HCPCS: 95992; 97161

== ENCOUNTER → 2021-05-23 07:21 | Outpatient (CLI) | payer MEDICARE, SELFPAY ==
[2021-05-23 09:36] LABS: Alanine Aminotransferase 17 IU/L (<35); Albumin 3.2 g/dL (3.5-5.0); Albumin Globulin Ratio 1.3 (1.0-2.8); Alkaline Phosphatase 69 U/L (38-126); Aspartate Aminotransferase 31 IU/L (14-36); BUN Creatinine Ratio 19.2 (6-22); Bilirubin Total 0.2 mg/dL (0.2-1.3); Blood Urea Nitrogen 10 mg/dL (7-17); C-Reactive Protein Quant 0.6 mg/dL (<1.0); Calcium 8.8 mg/dL (8.4-10.2); Carbon Dioxide 26 mmol/L (22-32); Chloride 107 mmol/L (98-107); Estimated Glomerular Filt Rate > 60.0 mL/min (>60); Globulin 2.4 g/dL (1.7-4.1); Glucose 92 mg/dL (80-110); HEMOLYSIS 17 (0-50); Potassium 4.8 mmol/L (3.4-5.1); Sodium 138 mmol/L (137-145); Total Protein 5.6 g/dL (6.3-8.2)
[2021-05-23 09:46] LABS: Erythrocyte Sedimentation Rate 23 MM/HR (0-20)
[2021-05-23 10:03] LABS: Cortisol Random 10.6 ug/dL; TSH w/ Reflex to FT4 4.63 uIU/mL (0.47-4.68)
[2021-05-24 03:13] LABS: Immunoglobulin A 185 mg/dL (64-422)
== END ==
PROVIDERS: PCP Physician Assistant; Referring Provider Internal Medicine Gastroenterology; Visit Provider Internal Medicine Gastroenterology
DX: R19.7 Diarrhea, unspecified (principal); R11.0 Nausea
CPT/HCPCS: 36415; 80053; 82533; 82784; 84443; 85651; 86140

== ENCOUNTER → 2021-06-02 09:14 | Outpatient (CLI) | payer MEDICARE, SELFPAY ==
[2021-06-02 11:00] LABS: Clostridium Difficile Tox PCR Negative for C. diff (Negative)
== END ==
PROVIDERS: PCP Physician Assistant; Referring Provider Internal Medicine Gastroenterology; Visit Provider Internal Medicine Gastroenterology
DX: R19.7 Diarrhea, unspecified (principal)
CPT/HCPCS: 87493

== ENCOUNTER → 2021-09-05 13:16 | Outpatient (CLI) | payer MEDICARE, SELFPAY ==
[2021-09-05 16:22] LABS: COVID19 -Nasal RAPID Negative (Negative)
== END ==
PROVIDERS: PCP Physician Assistant; Referring Provider Physical Medicine & Rehabilitation; Visit Provider Physical Medicine & Rehabilitation
DX: Z20.822 Contact with and (suspected) exposure to COVID-19 (principal)
CPT/HCPCS: 87635; C9803

== ENCOUNTER 2021-09-06 10:12 | Outpatient (CLI) | payer MEDICARE, SELFPAY ==
[2021-09-06] VITALS (8 sets, daily range): BP systolic 102–130; BP diastolic 59–75; PULSE 73–89; RESP 6–24; TEMP 36.9; O2SAT 98–100
--- NOTE | 2021-09-06 10:14 | DI.RAD.S_ITS ---
PROCEDURE: PAIN L INTERLAMINAR/CAUDAL INJ INDICATIONS: SPONDYLOSIS COMPARISON: [facility], , PAIN L/S TRANSFORAMINAL INJECT, 01/06/2021, 8:37. FINDINGS: Fluoroscopic spot filming was performed to verify placement of a spinal needle at the L4-L5 level, as labeled on the films. Appropriate location of the needle tip was confirmed by injection of iodinated contrast. IMPRESSION: Intraprocedural examination within normal limits. Dictated by: Oneil Snyder M.D. on 09/06/2021 at 12:07 Approved by: Oneil Snyder M.D. on 09/06/2021 at 12:07
[2021-09-06] MEDS: MIDAZOLAM 5 MG/5 ML VIAL IV (11:21)
[2021-09-06] MEDS: DEXAMETHASONE 10 MG/ML VIAL 20 MG (11:22)
[2021-09-06] MEDS: BUPIVACAINE 0.25% (PF) VIAL 30 ML (11:22)
[2021-09-06] MEDS: IOPAMIDOL 15 ML VIAL INJ (11:22)
[2021-09-06] MEDS: BETAMETHASONE 30 MG/5 ML MDV (11:23)
[2021-09-06] MEDS: fentaNYL 100 MCG/2 ML INJ (11:28)
--- NOTE | 2021-09-06 11:36 | PM.PROC.IR.1 ---
Date/Time/Diagnoses Date of procedure: 09/06/21 Time of procedure: 11:36 Pre-procedure diagnosis: 1. HNP WITH RADICULAR FEATURES, 2. MULTILEVEL CENTRAL STENOSIS, Post-procedure diagnosis: same Procedure Notes Procedure: 1. FLUOROSCOPICALLY GUIDED CONTRAST CONTROLLED INTERLAMINAR EPIDURAL STEROID INJECTION -L4/5 Indications: Keshia is referred by [facility] for treatment of Bilateral Foraminal Stenosis R>L LE symptoms. Physician: Mayco Mead Total Fluoroscopy time (seconds): 5 Total sedation minutes: 10 Complications: none Procedure in detail & Post-procedure care: FINDINGS Multilevel Central Spinal Stenosis with Nerve Root Compression DESCRIPTION OF PROCEDURE Fluoroscopically guided, contrast-controlled L4/5 translaminar epidural steroid injection. Following review of allergy and review of potential side effects and complications, including, but not necessarily limited to, infection, allergic reaction, local tissue breakdown, temporary as well as permanent nerve injury, paralysis, stroke and possible , the patient indicated that the patient understood and agreed to proceed. An informed consent document was signed by the patient, witnessed by a nurse, and placed in the patient's chart. Additionally, other treatment options including modalities, medications, and physical therapy were reviewed with the patient. After review of previous anaesthesic history and IV conscious sedation the patient was deemed safe to proceed with today?s procedure with IV conscious sedation as ASA class II designation. Safety time-out was performed to confirm patient ID, procedure to be performed and site of procedure. IV sedation was accomplished with a combination of 3mg of Versed and 50mcg of Fentanyl was administered by the RN after DO order, titrated to patient comfort during the course of the procedure while the patient remained responsive to all verbal commands. In the prone position, following sterile prep and drape of the lumbar region, the L4/5 translaminar space was identified fluoroscopically. The skin was anesthetized via a 25-gauge, 1.5inch needle with 1% lidocaine solution. At this point, a 22-gauge short bevel spinal needle was atraumatically introduced and advanced under fluoroscopic guidance into the region of the L4/5 translaminar space. Depth was confirmed on lateral view. Radiological data, including multiple fluoroscopic views of the lumbar spine, reveal a spinal needle at the L4/5 translaminar space. Lateral views then show placement of the needle in the epidural space. Subsequent views show contrast material flowing superiorly and inferiorly in the epidural space. No vascular or intrathecal uptake is observed. At this point, using loss of resistance technique with saline and air, the epidural space was entered. This was confirmed following negative aspiration with injection of approximately 1.5cc of Isovue 200, showing excellent epidural flow without vascular or intrathecal uptake. At this point, 1cc of 1% lidocaine solution combined with 3cc or 20mg of dexamethasone and 6mg betamethasone was injected without incident. The patient tolerated the procedure well without signs or symptoms of complications prior to transfer to the recovery area continued monitoring without incident. The patient was then transferred to the recovery area where they were observed for an appropriate period of time after the injection. The patient reported a VAS score of 6 prior to the procedure and a post-procedure VAS of 0. POST OP INSTRUCTIONS The patient was provided a Pain Log to continue to record their response to the target-specific procedure prior to follow-up visit with their referring physician. Additionally, specific post-injection care instructions and a contact number to our office were provided if concerns arise regarding possible complications associated with the procedure are suspected.
== END 2021-09-06 11:54 | disposition home or self-care (01) ==
PROVIDERS: PCP Physician Assistant; Referring Provider Physical Medicine & Rehabilitation; Visit Provider Physical Medicine & Rehabilitation
DX: M51.16 Intervertebral disc disorders with radiculopathy, lumbar region (principal); M48.061 Spinal stenosis, lumbar region without neurogenic claudication
CPT/HCPCS: 62323; 99152; J0702; J1100; J2250; J3010

== ENCOUNTER → 2021-11-16 16:27 | Outpatient (CLI) | payer MEDICARE, SELFPAY ==
--- NOTE | 2021-11-16 16:46 | DI.MG.S_ITS ---
BILATERAL DIGITAL SCREENING MAMMOGRAM 3D/2D WITH CAD: 11/16/2021 CLINICAL: Routine screening. Family history of breast cancer. Comparison is made to exams dated: 07/23/2020 mammogram, 07/17/2018 mammogram, 05/18/2017 mammogram, and 03/06/2016 mammogram - [facility]. The tissue of both breasts is heterogeneously dense. This may lower the sensitivity of mammography. Current study was also evaluated with a Computer Aided Detection (CAD) system. No significant masses, calcifications, or other findings are seen in either breast. There has been no significant interval change. IMPRESSION: NEGATIVE There is no mammographic evidence of malignancy. A 1 year screening mammogram is recommended. This exam was interpreted at Station ID: [id number]. NOTE: For mammograms, a report in lay terms will be sent to the patient. Approximately 15% of breast malignancies will not be visualized mammographically. In the management of a palpable breast mass, a negative mammogram must not discourage biopsy of a clinically suspicious lesion. Electronically Signed By: Abdelrahman viera/kristen:11/16/2021 17:04:18 letter sent: Normal Exam ACR BI-RADS Category 1: Negative 3341F
== END ==
PROVIDERS: PCP Physician Assistant; Referring Provider Physician Assistant; Visit Provider Physician Assistant
DX: Z12.31 Encounter for screening mammogram for malignant neoplasm of breast (principal); Z80.3 Family history of malignant neoplasm of breast
CPT/HCPCS: 77063; 77067

== ENCOUNTER → 2022-08-19 08:55 | Outpatient (CLI) | payer MEDICARE, SELFPAY | PROVIDERS: PCP Physician Assistant; Referring Provider Physician Assistant; Visit Provider Physician Assistant | DX: J47.0 Bronchiectasis with acute lower respiratory infection (principal); R05.3 Chronic cough | CPT/HCPCS: 87070; 87205 ==

== ENCOUNTER → 2022-10-13 17:30 | Outpatient (CLI) | payer MEDICARE, SELFPAY | PROVIDERS: PCP Physician Assistant; Referring Provider Internal Medicine Pulmonary Disease; Visit Provider Internal Medicine Pulmonary Disease | DX: J47.0 Bronchiectasis with acute lower respiratory infection (principal); R05.4 Cough syncope; J31.0 Chronic rhinitis; K90.49 Malabsorption due to intolerance, not elsewhere classified | CPT/HCPCS: 87070; 87077; 87205 ==

== ENCOUNTER → 2022-10-19 09:13 | Outpatient (CLI) | payer MEDICARE, SELFPAY | PROVIDERS: PCP Physician Assistant; Referring Provider Internal Medicine Pulmonary Disease; Visit Provider Internal Medicine Pulmonary Disease | DX: R05.3 Chronic cough (principal) | CPT/HCPCS: 87116; 87206 ==

== ENCOUNTER → 2022-10-21 09:56 | Outpatient (CLI) | payer MEDICARE, SELFPAY | PROVIDERS: PCP Physician Assistant; Referring Provider Internal Medicine Pulmonary Disease; Visit Provider Internal Medicine Pulmonary Disease | DX: J47.0 Bronchiectasis with acute lower respiratory infection (principal) | CPT/HCPCS: 87116; 87206 ==

== ENCOUNTER → 2022-11-20 15:07 | Outpatient (CLI) | payer MEDICARE, SELFPAY ==
--- NOTE | 2022-11-20 | DI.MG.S_ITS ---
BILATERAL DIGITAL SCREENING MAMMOGRAM 3D/2D WITH CAD: 11/20/2022 CLINICAL: Routine screening. Family history of breast cancer. Comparison is made to exams dated: 11/16/2021 mammogram, 07/23/2020 mammogram, 07/17/2018 mammogram, and 05/18/2017 mammogram - [facility]. Both breasts are heterogeneously dense, which may obscure small masses (category c / 51-75% glandular tissue). Current study was also evaluated with a Computer Aided Detection (CAD) system. No significant masses, calcifications, or other findings are seen in either breast. There has been no significant interval change. IMPRESSION: NEGATIVE There is no mammographic evidence of malignancy. A 1 year screening mammogram is recommended. Based on the Tyrer Cuzick model (a risk assessment model) the patient's lifetime risk is 9.3% and her 10 year risk is 7.7%. According to the ACR, ACS, and NCCN guidelines, an annual breast MRI exam along with mammogram is recommended if the patient's lifetime risk is 20% or greater. This exam was interpreted at Station ID: [id number]. NOTE: For mammograms, a report in lay terms will be sent to the patient. Approximately 15% of breast malignancies will not be visualized mammographically. In the management of a palpable breast mass, a negative mammogram must not discourage biopsy of a clinically suspicious lesion. Electronically Signed By: Abdelrahman viera/kristen:11/20/2022 15:57:46 letter sent: Normal Exam ACR BI-RADS Category 1: Negative 3341F
== END ==
PROVIDERS: PCP Physician Assistant; Referring Provider Physician Assistant; Visit Provider Physician Assistant
DX: Z12.31 Encounter for screening mammogram for malignant neoplasm of breast (principal); Z80.3 Family history of malignant neoplasm of breast
CPT/HCPCS: 77063; 77067

== ENCOUNTER → 2022-12-21 12:51 | Outpatient (CLI) | payer MEDICARE, SELFPAY ==
[2022-12-22 12:31] LABS: Fats, Neutral Normal (.); Fats, Total Increased (.)
[2022-12-28 14:58] LABS: Pancreatic Elastase, Fecal 482 (>200)
== END ==
PROVIDERS: PCP Physician Assistant; Referring Provider Internal Medicine Gastroenterology; Visit Provider Internal Medicine Gastroenterology
DX: R19.7 Diarrhea, unspecified (principal)
CPT/HCPCS: 82656; 82705

== ENCOUNTER → 2023-03-30 16:40 | Outpatient (CLI) | payer MEDICARE, SELFPAY ==
--- NOTE | 2023-03-30 16:43 | DI.US.S_ITS ---
PROCEDURE: US SOFT TISSUE HEAD AND NECK INDICATIONS: RIGHT SIDE NECK SWELLING TECHNIQUE: Real-time scanning was performed of the neck region of interest, with image documentation. COMPARISON: None. FINDINGS: The right parotid gland is relatively enlarged compared to the left parotid and demonstrates increased vascularity. IMPRESSION: Findings suggestive of right parotitis. Dictated by: Vinicio Ortiz M.D. on 03/30/2023 at 17:54 Approved by: Vinicio Ortiz M.D. on 03/30/2023 at 17:55
== END ==
PROVIDERS: PCP Physician Assistant; Referring Provider Nurse Practitioner Family; Visit Provider Nurse Practitioner Family
DX: R22.1 Localized swelling, mass and lump, neck (principal)
CPT/HCPCS: 76536

== ENCOUNTER → 2023-05-22 15:13 | Outpatient (CLI) | payer MEDICARE, SELFPAY ==
--- NOTE | 2023-05-22 15:17 | DI.RAD.S_ITS ---
PROCEDURE: XR FOOT RT MIN 3V INDICATIONS: bilateral foot pain with history of RA TECHNIQUE: 3 views of the foot were acquired. COMPARISON: None. FINDINGS: Bones: No fractures or dislocations. No suspicious bony lesions. Plantar calcaneal bone spur. Mild 1st MTP joint osteoarthritis. No osseous erosions. No periarticular osteopenia. Soft tissues: No tibiotalar joint effusion. Achilles tendon appears normal. IMPRESSION: No osseous erosions. Dictated by: Nemo Helms MD, PhD on 05/22/2023 at 15:57 Approved by: Nemo Helms MD, PhD on 05/22/2023 at 15:57
--- NOTE | 2023-05-22 15:17 | DI.RAD.S_ITS ---
PROCEDURE: XR FOOT LT MIN 3V INDICATIONS: bilateral foot pain with history of RA TECHNIQUE: 3 views of the foot were acquired. COMPARISON: None. FINDINGS: Bones: No fractures or dislocations. No suspicious bony lesions. Calcaneal bone spurs. Mild 1st MTP joint osteoarthritis. No osseous erosions. No periarticular osteopenia. Soft tissues: No tibiotalar joint effusion. Achilles tendon appears normal. IMPRESSION: No osseous erosions. Dictated by: Nemo Helms MD, PhD on 05/22/2023 at 15:56 Approved by: Nemo Helms MD, PhD on 05/22/2023 at 15:57
== END ==
PROVIDERS: PCP Physician Assistant; Referring Provider Internal Medicine Rheumatology; Visit Provider Internal Medicine Rheumatology
DX: M19.072 Primary osteoarthritis, left ankle and foot (principal); M19.071 Primary osteoarthritis, right ankle and foot; M77.32 Calcaneal spur, left foot; M77.31 Calcaneal spur, right foot; M79.671 Pain in right foot; M79.672 Pain in left foot; Z87.39 Personal history of other diseases of the musculoskeletal system and connective tissue
CPT/HCPCS: 73630

== ENCOUNTER → 2023-07-06 10:03 | Outpatient (CLI) | payer MEDICARE, SELFPAY | PROVIDERS: PCP Physician Assistant; Referring Provider Internal Medicine Pulmonary Disease; Visit Provider Internal Medicine Pulmonary Disease | DX: J47.9 Bronchiectasis, uncomplicated (principal); J44.9 Chronic obstructive pulmonary disease, unspecified; K90.9 Intestinal malabsorption, unspecified | CPT/HCPCS: 87070; 87205 ==

== ENCOUNTER → 2024-01-22 19:04 | Outpatient (CLI) | payer MEDICARE, SELFPAY | PROVIDERS: PCP Physician Assistant; Visit Provider Student in an Organized Health Care Education/Training Program | DX: R30.0 Dysuria (principal) | CPT/HCPCS: 87086 ==

== ENCOUNTER 2024-01-22 19:21 | Emergency (ER) | payer MEDICARE, SELFPAY ==
[2024-01-22 19:25] VITALS: BP 126/70; PULSE 86; RESP 16; TEMP 36.8; O2SAT 100; BMI 22.6
[2024-01-22 19:46] LABS: Add Manual Diff / Slide Review NO; Basophils Absolute Auto 100 /uL (0-100); Basophils Percent Auto 0.5 % (0-2); Eosinophils Absolute Auto 1400 /uL (0-450); Hematocrit 42.1 % (36-46); Hemoglobin 14.3 g/dL (12.0-16.0); Lymphocytes Absolute Auto 3300 /uL (1100-4500); Lymphocytes Percent Auto 31.9 % (25-40); Mean Corpuscular Hemoglobin 32.1 PG (26-34); Mean Corpuscular Volume 94.4 fL (80-100); Monocytes Absolute Auto 800 /uL (0-900); Monocytes Percent Auto 7.6 % (3-14); Neutrophils Absolute Auto 4700 /uL (1500-7000); Platelet Count 366 X10^3/uL (150-400); Red Blood Cell Count 4.46 X10^6/uL (4.0-5.2); Red Cell Distribution Width 13.9 % (11.6-14.8); White Blood Cell Count 10.3 X10^3/uL (4.5-11.0)
[2024-01-22 20:15] LABS: Alanine Aminotransferase 11 IU/L (<35); Albumin Globulin Ratio 1.3 (1.0-2.8); Alkaline Phosphatase 70 U/L (38-126); Aspartate Aminotransferase 31 IU/L (14-36); BUN Creatinine Ratio 14.5 (6-22); Bilirubin Total 0.5 mg/dL (0.2-1.3); Blood Urea Nitrogen 10 mg/dL (7-17); Calcium 7.9 mg/dL (8.4-10.2); Carbon Dioxide 25 mmol/L (22-32); Chloride 108 mmol/L (98-107); Estimated Glomerular Filt Rate > 60 mL/min (>60); Globulin 2.3 g/dL (1.7-4.1); Glucose 104 mg/dL (80-110); HEMOLYSIS 17 (0-50); Potassium 3.7 mmol/L (3.4-5.1); Sodium 134 mmol/L (137-145); Total Protein 5.3 g/dL (6.3-8.2)
[2024-01-22] MEDS: ONDANSETRON 4 MG/2 ML INJ IV (20:25)
[2024-01-22] MEDS: SODIUM CHLORIDE 0.9% 1,000 ML 1000 ML IV (20:26)
[2024-01-23 00:11] LABS: Adenovirus F 40/41 Not Detected (Not Detect); Astrovirus Not Detected (Not Detect); Campylobacter Not Detected (Not Detect); Clostridium difficile toxin AB Detected (Not Detect); Cryptosporidium Not Detected (Not Detect); Cyclospora cayetanensis Not Detected (Not Detect); Entamoeba histolytica Not Detected (Not Detect); Enteroaggregative E.coli Not Detected (Not Detect); Enteropathogenic E.coli Not Detected (Not Detect); Enterotoxigenic E.coli It/st Not Detected (Not Detect); Giardia lamblia Not Detected (Not Detect); Norovirus GI/GII Not Detected (Not Detect); Plesiomonsa shigelloides Not Detected (Not Detect); Rotavirus A Not Detected (Not Detect); Salmonella Not Detected (Not Detect); Sapovirus Not Detected (Not Detect); Shiga-like toxin-prod E.coli Not Detected (Not Detect); Shigella/Enteroinvasive E.coli Not Detected (Not Detect); Vibrio Not Detected (Not Detect); Vibrio cholerae Not Detected (Not Detect); Yersinia enterocolitica Not Detected (Not Detect)
--- NOTE | 2024-01-23 00:36 | ED.NAVMDI ---
HPI - Nausea/Vomiting/Diarrhea General Chief complaint: Nausea/Vomiting/Diarrhea Stated complaint: dehydrated/sent by [facility] Time Seen by Provider: 01/22/24 23:36 Source: patient Mode of arrival: Ambulatory History of Present Illness HPI Narrative: 73-year-old female who approximately 2 weeks ago completed a course of antibiotics for bronchitis. She is sent to the emergency department today from the walk-in clinic concerns of dehydration after now having greater than 24 hours persistent nonbloody multiple episodes of diarrhea and decreased urination. She is having some abdominal discomfort that is related to the episodes of diarrhea. She has not having any vomiting. No fevers. Has not tried anything for symptoms prior to arrival Related Data Home Medications Medication Instructions Recorded Confirmed cholestyramine-aspartame 4 gram 4 g PO DAILY 09/06/21 01/22/24 oral powder for susp in a packet acetaminophen 500 mg tablet 500 mg PO Q6H PRN 02/13/22 01/22/24 (Tylenol Extra Strength) omeprazole 40 mg capsule,delayed 40 mg PO DAILY 04/13/22 01/22/24 release Previous Rx's Medication Instructions Recorded vancomycin 125 mg capsule 125 mg PO QID 10 days #40 caps 01/23/24 Allergies Allergy/AdvReac Type Severity Reaction Status Date / Time ibuprofen [IBUPROFEN] Allergy Severe HIVES/TROUBLE Verified 01/22/24 18:34 BREATHING NSAIDS (Non-Steroidal Allergy Unknown PER Verified 01/22/24 18:34 Anti-Inflamma M. [NSAIDS (NON-STEROIDAL KUBOSUMI ANTI-INFLAMMA] DUE TO ALLERGIC REACTION TO IBUPROFEN Review of Systems Review of Systems ROS Unobtainable: All systems reviewed & are unremarkable except as noted in HPI and below Patient History Medical History Lumbosacral radiculopathy at L5 Herniated nucleus pulposus, L4-5 Surgical History H/O removal of neck cyst Family History Grandmother Heart disease Mother Age: 95 Heart disease Stroke Social History Smoking Status: Former smoker Smoking Status: Former smoker Substance Use Type: does not use Exam Initial Vital Signs Initial Vital Signs: Vital Signs Temperature 98.2 F 01/22/24 19:25 Pulse Rate 86 01/22/24 19:25 Respiratory Rate 16 01/22/24 19:25 Blood Pressure 126/70 01/22/24 19:25 Pulse Oximetry 100 01/22/24 19:25 Oxygen Delivery Method Room Air 01/22/24 19:25 GI Inspection: normal to inspection and non-distended Palpation: soft, No firm, No guarding, No rigid and No tender Skin General: no rashes or lesions noted Neuro General: patient alert, patient awake, patient oriented x3 and moves all extremities Extrem General: normal to inspection Course Orders Ordered: ED Orders 01/22/24 22:30 GI Panel (Film Array) Stat Discontinued Medications Sodium Chloride (Normal Saline 0.9%) 1,000 mls @ 1,000 mls/hr IV BOLUS ONE Stop: 01/22/24 20:29 Last Infusion: 01/22/24 22:42 Dose: Infused Documented By: Admin: 01/22/24 20:26 Dose: 1,000 mls/hr Documented By: INDU Ondansetron HCl (Ondansetron 4 Mg/2 Ml Inj) 4 mg IV NOW ONE Stop: 01/22/24 19:31 Last Admin: 01/22/24 20:25 Dose: 4 mg Documented By: INDU Vancomycin HCl (Vancomycin 125 Mg Capsule) 125 mg PO NOW ONE Stop: 01/23/24 00:37 Last Admin: 01/23/24 00:49 Dose: 125 mg Documented By: SUZANNE Vital Signs Vital signs: Vital Signs - 8 hr 01/23/24 00:52 Pulse Rate 77 Respiratory Rate 16 Blood Pressure 114/66 Pulse Oximetry 97 Oxygen Delivery Method Room Air MDM - Nausea/Vomiting/Diarrhea Medical Records Attestation: I reviewed the patient's medical records. Lab Data Attestation: I reviewed the patient's lab results. 01/22/24 19:30 01/22/24 19:30 Labs: Lab Results 01/22/24 01/22/24 Range/Units 19:30 22:30 WBC 10.3 (4.5-11.0) X10^3/uL RBC 4.46 (4.0-5.2) X10^6/uL Hgb 14.3 (12.0-16.0) g/dL Hct 42.1 (36-46) % MCV 94.4 (80-100) fL MCH 32.1 (26-34) PG MCHC 34.0 (30-36) % RDW 13.9 (11.6-14.8) % Plt Count 366 (150-400) X10^3/uL Neut % (Auto) 46.0 L (50-75) % Lymph % (Auto) 31.9 (25-40) % Mcpherson % (Auto) 7.6 (3-14) % Eos % (Auto) 14.0 H (2-4) % Baso % (Auto) 0.5 (0-2) % Neut # (Auto) 4700 (5906-3519) /uL Lymph # (Auto) 3300 (9854-6566) /uL Mcpherson # (Auto) 800 (0-900) /uL Eos # (Auto) 1400 H (0-450) /uL Baso # (Auto) 100 (0-100) /uL Sodium 134 L (137-145) mmol/L Potassium 3.7 (3.4-5.1) mmol/L Chloride 108 H (98-107) mmol/L Carbon Dioxide 25 (22-32) mmol/L BUN 10 (7-17) mg/dL Creatinine 0.69 (0.52-1.04) mg/dL Estimated GFR > 60 (>60) mL/min BUN/Creatinine Ratio 14.5 (6-22) Glucose 104 (80-110) mg/dL Calcium 7.9 L (8.4-10.2) mg/dL Total Bilirubin 0.5 (0.2-1.3) mg/dL AST 31 (14-36) IU/L ALT 11 (<35) IU/L Alkaline Phosphatase 70 (38-126) U/L Total Protein 5.3 L (6.3-8.2) g/dL Albumin 3.0 L (3.5-5.0) g/dL Globulin 2.3 (1.7-4.1) g/dL Albumin/Globulin Ratio 1.3 (1.0-2.8) Stl C. cayetanensis PCR Not detected (Not Detect) Stool Rotavirus (PCR) Not detected (Not Detect) Stool Adenovirus (PCR) Not detected (Not Detect) Stool Astrovirus (PCR) Not detected (Not Detect) Stool Cryptosporidium PCR Not detected (Not Detect) Stl E.coli Shiga Tox PCR Not detected (Not Detect) St Sh/Enteroin Ecoli PCR Not detected (Not Detect) Stl Enterotoxigenic E PCR Not detected (Not Detect) Stool EPEC (PCR) Not detected (Not Detect) Stl E. histolytica PCR Not detected (Not Detect) Stool Giardia Lamblia PCR Not detected (Not Detect) Stool Sapovirus (PCR) Not detected (Not Detect) Stl P. shigelloides PCR Not detected (Not Detect) St Y.enterocolitica PCR Not detected (Not Detect) Stool Vibrio (PCR) Not detected (Not Detect) Stl Vibrio cholerae PCR Not detected (Not Detect) Stl Enteroaggr Ecoli PCR Not detected (Not Detect) Stl Norovirus GI/GII PCR Not detected (Not Detect) Campylobacter (PCR) Not detected (Not Detect) C. difficile Tox (PCR) Detected H (Not Detect) Salmonella (PCR) Not detected (Not Detect) ECG Data Attestation: I personally reviewed and interpreted this ECG as follows: Interpretation: Sinus rhythm Ventricular rate is 74 Normal axis Normal QRS Normal QTC No ST T wave changes MDM Narrative Medical decision making narrative: Stool cultures is positive for C diff was does correspond to her presenting symptoms today. Afebrile. Benign abdominal exam. No leukocytosis. Normal kidney function. Normal sodium. Is tolerating oral intake. Plan will be to discharge patient with oral vancomycin. First dose given here in the emergency department. A prescription was printed for her so that she could shop around to see the best place for this medication that can be quite expensive. She was given return precautions and follow-up instructions. No indication for admission to the hospital today. She expressed understanding and agreement with plan. Discharge Plan Departure Patient Disposition: Home Clinical Impression: C. difficile diarrhea Instructions: DI for Antibiotic -- associated Colitis -- C difficile Activity Restrictions/Additional Instructions: The antibiotics should be taken as directed. I recommend that you look the antibiotic up on GoodRx to see what pharmacy would be the cheapest as this course of treatment can be very expensive. Be sure that you were increasing your fluid intake. Return to the emergency department for new or worsening symptoms. Prescriptions: New vancomycin 125 mg capsule 125 mg PO QID 10 Days Qty: 40 0RF No Action cholestyramine-aspartame [Cholestyramine Susp Light] 4 gram Powder In Packet 4 g PO DAILY Rx Instructions: administer w/meal; avoid other meds within 1hr before or 4-6hr after dose acetaminophen [Tylenol Extra Strength] 500 mg tablet 500 mg PO Q6H PRN omeprazole 40 mg capsule,delayed release(DR/EC) 40 mg PO DAILY Referrals: Jacquelyn Curry PA-C [Primary Care Provider] - Stand Alone Forms: Patient Portal/API
[2024-01-23] MEDS: VANCOMYCIN 125 MG CAPSULE PO (00:49)
[2024-01-23 00:52] VITALS: BP 114/66; PULSE 77; RESP 16; O2SAT 97
[2024-01-24 23:10] LABS: C difficie Toxins A and B, EIA Negative (Negative)
== END 2024-01-23 00:55 | disposition home or self-care (01) ==
PROVIDERS: Emergency Provider Emergency Medicine; PCP Physician Assistant
DX: A04.72 Enterocolitis due to Clostridium difficile, not specified as recurrent (principal); R30.0 Dysuria
CPT/HCPCS: 36415; 80053; 85025; 87086; 87324; 87507; 93005; 96374; 99284; J2405

== ENCOUNTER 2024-02-01 19:35 | Emergency (ER) | payer MEDICARE, SELFPAY ==
[2024-02-01 19:40] VITALS: BP 148/97; PULSE 100; RESP 16; TEMP 36.9; O2SAT 97; BMI 22.4
--- NOTE | 2024-02-01 21:03 | ED.NAVMDI ---
HPI - Nausea/Vomiting/Diarrhea General Chief complaint: Nausea/Vomiting/Diarrhea Stated complaint: states has dif-C/symptoms back Time Seen by Provider: 02/01/24 20:25 Source: patient Mode of arrival: Ambulatory History of Present Illness HPI Narrative: Patient is a 73-year-old with known C diff diagnosed in the ED on January 22 after she completed a course of antibiotics for bronchitis. She has been given vancomycin for 10 days she is on her last day she went out to eat [place] [employer] and had profuse diarrhea last night. She also reports that at the restaurant last night she felt a little dizzy and lightheaded and almost passed out but not. She can felt a little dizzy coming into the ED. She has some mild lower abdominal pain. No bloody stools. She has had significant decreased appetite usually able to tolerate fluids. She already has a GI doctor for other issues. She does have rheumatoid arthritis but is not been taking her methotrexate or prednisone for it, due to current C diff infection. Denies any fever or chills. Related Data Home Medications Medication Instructions Recorded Confirmed cholestyramine-aspartame 4 gram 4 g PO DAILY 09/06/21 01/22/24 oral powder for susp in a packet acetaminophen 500 mg tablet 500 mg PO Q6H PRN 02/13/22 01/22/24 (Tylenol Extra Strength) omeprazole 40 mg capsule,delayed 40 mg PO DAILY 04/13/22 01/22/24 release Previous Rx's Medication Instructions Recorded vancomycin 125 mg capsule 125 mg PO QID 10 days #40 caps 01/23/24 loperamide 2 mg capsule (Imodium 2 mg PO Q6H PRN loose stool #30 02/01/24 A-D) caps vancomycin 125 mg capsule 125 mg PO BID #30 caps 02/01/24 Allergies Allergy/AdvReac Type Severity Reaction Status Date / Time ibuprofen [IBUPROFEN] Allergy Severe HIVES/TROUBLE Verified 02/01/24 19:50 BREATHING NSAIDS (Non-Steroidal Allergy Unknown PER Verified 02/01/24 19:50 Anti-Inflamma M. [NSAIDS (NON-STEROIDAL KUBOSUMI ANTI-INFLAMMA] DUE TO ALLERGIC REACTION TO IBUPROFEN Patient History Medical History Lumbosacral radiculopathy at L5 Herniated nucleus pulposus, L4-5 Surgical History H/O removal of neck cyst Family History Grandmother Heart disease Mother Age: 95 Heart disease Stroke Social History Smoking Status: Former smoker Smoking Status: Former smoker Substance Use Type: does not use Exam Initial Vital Signs Initial Vital Signs: Vital Signs Temperature 98.5 F 02/01/24 19:40 Pulse Rate 100 H 02/01/24 19:40 Respiratory Rate 16 02/01/24 19:40 Blood Pressure 148/97 H 02/01/24 19:40 Pulse Oximetry 97 02/01/24 19:40 Oxygen Delivery Method Room Air 02/01/24 19:40 GENERAL: Well-appearing, well-nourished and in no acute distress. HEENT: Head atraumatic,EOMI, pupils reactive, face symmetric, moist mucous membranes CARDIOVASCULAR: Regular rate and rhythm without murmurs, rubs or gallops. RESPIRATORY: Breath sounds equal bilaterally, no wheezes rales or rhonchi. ABDOMEN: Soft, mild suprapubic tenderness no guarding or rebound EXTREMITIES: Normal range of motion, no clubbing or edema. Neurovascularly intact NEUROLOGICAL: Alert and oriented x4.Normal gait and speech. SKIN: Warm, dry, no laceration, no petechiae, no rashes or lesions. Course Orders Ordered: ED Orders 02/01/24 21:21 CT abdomen pelvis w con Stat 02/01/24 21:33 CBC Auto Diff [Complete Blood Count AUTO DIFF] Stat CMP [Comprehensive Metabolic Panel] Stat 02/01/24 22:58 Clostridium Difficile Tox PCR Stat Discontinued Medications Sodium Chloride (Normal Saline 0.9%) 1,000 mls @ 1,000 mls/hr IV BOLUS ONE Stop: 02/01/24 22:18 Last Infusion: 02/01/24 22:34 Dose: 1,000 mls/hr Documented By: Admin: 02/01/24 21:38 Dose: 1,000 mls/hr Documented By: SUZANNE Ondansetron HCl (Ondansetron 4 Mg/2 Ml Inj) 4 mg IV NOW ONE Stop: 02/01/24 23:03 Last Admin: 02/01/24 23:09 Dose: 4 mg Vital Signs Vital signs: Vital Signs - 8 hr 02/01/24 19:40 02/01/24 23:16 Temperature 98.5 F Pulse Rate 100 H 92 H Respiratory Rate 16 18 Blood Pressure 148/97 H 146/90 H Pulse Oximetry 97 99 Oxygen Delivery Method Room Air Room Air MDM - Nausea/Vomiting/Diarrhea Lab Data 02/01/24 21:33 02/01/24 21:33 Labs: Lab Results 02/01/24 Range/Units 21:33 WBC 8.8 (4.5-11.0) X10^3/uL RBC 4.43 (4.0-5.2) X10^6/uL Hgb 13.9 (12.0-16.0) g/dL Hct 41.6 (36-46) % MCV 93.8 (80-100) fL MCH 31.3 (26-34) PG MCHC 33.4 (30-36) % RDW 14.3 (11.6-14.8) % Plt Count 312 (150-400) X10^3/uL Neut % (Auto) 52.4 (50-75) % Lymph % (Auto) 31.9 (25-40) % [place] % (Auto) 8.3 (3-14) % Eos % (Auto) 6.2 H (2-4) % Baso % (Auto) 1.2 (0-2) % Neut # (Auto) 4600 (5319-5630) /uL Lymph # (Auto) 2800 (7501-4330) /uL [place] # (Auto) 700 (0-900) /uL Eos # (Auto) 500 H (0-450) /uL Baso # (Auto) 100 (0-100) /uL Sodium 136 L (137-145) mmol/L Potassium 4.6 (3.4-5.1) mmol/L Chloride 110 H (98-107) mmol/L Carbon Dioxide 27 (22-32) mmol/L BUN 11 (7-17) mg/dL Creatinine 0.72 (0.52-1.04) mg/dL Estimated GFR > 60 (>60) mL/min BUN/Creatinine Ratio 15.3 (6-22) Glucose 96 (80-110) mg/dL Calcium 8.3 L (8.4-10.2) mg/dL Total Bilirubin 0.4 (0.2-1.3) mg/dL AST 28 (14-36) IU/L ALT 17 (<35) IU/L Alkaline Phosphatase 79 (38-126) U/L Total Protein 5.8 L (6.3-8.2) g/dL Albumin 3.2 L (3.5-5.0) g/dL Globulin 2.6 (1.7-4.1) g/dL Albumin/Globulin Ratio 1.2 (1.0-2.8) Imaging Data CT scan - abdomen/pelvis: Radiologist's Impression: PROCEDURE: CT ABDOMEN PELVIS W CON INDICATIONS: lower left pain TECHNIQUE: After the administration of intravenous contrast, axial sections acquired from the lung bases to the pubic symphysis. Coronal and sagittal reformats were performed. For radiation dose reduction, the following was used: automated exposure control, adjustment of mA and/or kV according to patient size. COMPARISON: [facility], CT, CT ABDOMEN PELVIS W CON, 10/20/2020, 12:36., CT chest 06/16/2022 FINDINGS: Image quality: Diagnostic. Lower Chest: Redemonstration of patchy air pace opacity in the right middle lobe and lingula with area of bronchiectasis. ABDOMEN: Liver: No solid mass. Gallbladder: Cholelithiasis without gallbladder wall thickening or pericholecystic fluid. Biliary ducts: No biliary dilation. Pancreas: No ductal dilation. Spleen: Size is within normal limits. Adrenal Glands: No adrenal nodules. Kidneys and Ureters: No hydronephrosis. No solid mass. No complex renal cystic lesion which requires follow up. Stomach and Bowel: Small hiatal hernia. Normal colonic caliber, without significant wall thickening. Status post appendectomy. Peritoneum: No abnormal intraperitoneal fluid. No free air. Ventral Wall: No significant ventral hernia. Abdominal Nodes: No retroperitoneal or mesenteric adenopathy by size criteria. Vessels: Aorta and inferior vena cava are normal in size. PELVIS: Pelvic Organs: Status post hysterectomy. Bladder: No bladder wall thickening, accounting for underdistention. Pelvic Nodes: No enlarged lymph nodes. Miscellaneous: No inguinal hernias are seen. Bones: No aggressive osseous abnormality. IMPRESSION: No acute process in the abdomen or pelvis to explain patient's lower left symptoms. Cholelithiasis without CT evidence of acute cholecystitis. Right middle lobe and lingula patchy areas of opacity have decreased since May 2022 with persistent bronchiectasis. Findings likely represent chronic infectious/inflammatory etiology. Approved by: Sandra Stiles M.D.,Ph.D. on 02/01/2024 at 22:48 MDM Narrative Medical decision making narrative: Patient is a 73-year-old female with known C diff presenting today with ongoing diarrhea. She is on the 10th day of vancomycin and having increased diarrhea. She reports that she had a pretty heavy meal for the 1st time last night and has really had diarrhea ever since. She has not dizzy or lightheaded. She actually is up to the restroom multiple times in the ED to have a bowel movement. She was able to give us a sample small amount and nonbloody. Blood work has been reviewed she has no significant leukocytosis, chloride is slightly elevated at 110 but kidney function is stable within normal limits. CT does not show any acute abnormality Vitals are stable not hypotensive or tachycardic no evidence of dehydration. No complication on CT. Patient has a appointment with a GI doctor in February for her other issues. Discussed with her that this will take time I think reasonable to put her on the tapering dose of vancomycin. C diff test is pending suspect it is still positive. Discharge Plan Departure Patient Disposition: Home Clinical Impression: C. difficile diarrhea Instructions: Antibiotic-associated Colitis -- C difficile Activity Restrictions/Additional Instructions: *You have been diagnosed with C diff *What to do: This again take a long time to heal and recover. I do strongly recommend that you follow-up with PCP and GI *Continue to take medications as directed Vancomycin 125 mg twice a day for 7 days then 125 mg once a day for 7 days then 125 mg every 2-3 days 4-8 weeks (discuss this left part with PCP or GI) *Follow up with your primary care provider in 2-3 days or call [phone] *Return to ER if you should have bloody diarrhea passing out increasing abdominal pain or any new, worsening or concerning symptoms Prescriptions: New vancomycin 125 mg capsule 125 mg PO BID Qty: 30 0RF Rx Instructions: 1 tablet twice a day for 7 days then 1 tablet once a day for 7 days then 1 tablet every 2-3 days until gone loperamide [Imodium A-D] 2 mg capsule 2 mg PO Q6H PRN (Reason: loose stool) Qty: 30 0RF No Action cholestyramine-aspartame [Cholestyramine Susp Light] 4 gram Powder In Packet 4 g PO DAILY Rx Instructions: administer w/meal; avoid other meds within 1hr before or 4-6hr after dose vancomycin 125 mg capsule 125 mg PO QID 10 Days Qty: 40 0RF acetaminophen [Tylenol Extra Strength] 500 mg tablet 500 mg PO Q6H PRN omeprazole 40 mg capsule,delayed release(DR/EC) 40 mg PO DAILY Referrals: Jacquelyn Curry PA-C [Primary Care Provider] - Stand Alone Forms: Patient Portal/API
--- NOTE | 2024-02-01 21:21 | DI.CT.S_ITS ---
PROCEDURE: CT ABDOMEN PELVIS W CON INDICATIONS: lower left pain TECHNIQUE: After the administration of intravenous contrast, axial sections acquired from the lung bases to the pubic symphysis. Coronal and sagittal reformats were performed. For radiation dose reduction, the following was used: automated exposure control, adjustment of mA and/or kV according to patient size. COMPARISON: [facility], CT, CT ABDOMEN PELVIS W CON, 10/20/2020, 12:36., CT chest 06/16/2022 FINDINGS: Image quality: Diagnostic. Lower Chest: Redemonstration of patchy air pace opacity in the right middle lobe and lingula with area of bronchiectasis. ABDOMEN: Liver: No solid mass. Gallbladder: Cholelithiasis without gallbladder wall thickening or pericholecystic fluid. Biliary ducts: No biliary dilation. Pancreas: No ductal dilation. Spleen: Size is within normal limits. Adrenal Glands: No adrenal nodules. Kidneys and Ureters: No hydronephrosis. No solid mass. No complex renal cystic lesion which requires follow up. Stomach and Bowel: Small hiatal hernia. Normal colonic caliber, without significant wall thickening. Status post appendectomy. Peritoneum: No abnormal intraperitoneal fluid. No free air. Ventral Wall: No significant ventral hernia. Abdominal Nodes: No retroperitoneal or mesenteric adenopathy by size criteria. Vessels: Aorta and inferior vena cava are normal in size. PELVIS: Pelvic Organs: Status post hysterectomy. Bladder: No bladder wall thickening, accounting for underdistention. Pelvic Nodes: No enlarged lymph nodes. Miscellaneous: No inguinal hernias are seen. Bones: No aggressive osseous abnormality. IMPRESSION: No acute process in the abdomen or pelvis to explain patient's lower left symptoms. Cholelithiasis without CT evidence of acute cholecystitis. Right middle lobe and lingula patchy areas of opacity have decreased since May 2022 with persistent bronchiectasis. Findings likely represent chronic infectious/inflammatory etiology. Approved by: Sandra Stiles M.D.,Ph.D. on 02/01/2024 at 22:48
[2024-02-01] MEDS: SODIUM CHLORIDE 0.9% 1,000 ML 1000 ML IV (21:38)
[2024-02-01 21:43] LABS: Add Manual Diff / Slide Review NO; Basophils Absolute Auto 100 /uL (0-100); Basophils Percent Auto 1.2 % (0-2); Eosinophils Absolute Auto 500 /uL (0-450); Eosinophils Percent Auto 6.2 % (2-4); Hematocrit 41.6 % (36-46); Hemoglobin 13.9 g/dL (12.0-16.0); Lymphocytes Absolute Auto 2800 /uL (1100-4500); Lymphocytes Percent Auto 31.9 % (25-40); Mean Corpuscular HGB Conc 33.4 % (30-36); Mean Corpuscular Hemoglobin 31.3 PG (26-34); Mean Corpuscular Volume 93.8 fL (80-100); Monocytes Absolute Auto 700 /uL (0-900); Monocytes Percent Auto 8.3 % (3-14); Neutrophils Absolute Auto 4600 /uL (1500-7000); Neutrophils Percent Auto 52.4 % (50-75); Platelet Count 312 X10^3/uL (150-400); Red Blood Cell Count 4.43 X10^6/uL (4.0-5.2); Red Cell Distribution Width 14.3 % (11.6-14.8); White Blood Cell Count 8.8 X10^3/uL (4.5-11.0)
[2024-02-01 22:00] LABS: Alanine Aminotransferase 17 IU/L (<35); Albumin 3.2 g/dL (3.5-5.0); Albumin Globulin Ratio 1.2 (1.0-2.8); Alkaline Phosphatase 79 U/L (38-126); Aspartate Aminotransferase 28 IU/L (14-36); BUN Creatinine Ratio 15.3 (6-22); Bilirubin Total 0.4 mg/dL (0.2-1.3); Blood Urea Nitrogen 11 mg/dL (7-17); Calcium 8.3 mg/dL (8.4-10.2); Carbon Dioxide 27 mmol/L (22-32); Chloride 110 mmol/L (98-107); Estimated Glomerular Filt Rate > 60 mL/min (>60); Globulin 2.6 g/dL (1.7-4.1); Glucose 96 mg/dL (80-110); HEMOLYSIS 18 (0-50); Potassium 4.6 mmol/L (3.4-5.1); Sodium 136 mmol/L (137-145); Total Protein 5.8 g/dL (6.3-8.2)
[2024-02-01] MEDS: ONDANSETRON 4 MG/2 ML INJ IV (23:09)
[2024-02-01 23:16] VITALS: BP 146/90; PULSE 92; RESP 18; O2SAT 99
[2024-02-02 00:03] LABS: Clostridium Difficile Tox PCR Negative for C. diff (Negative)
== END 2024-02-01 23:17 | disposition home or self-care (01) ==
PROVIDERS: Emergency Provider Emergency Medicine; PCP Physician Assistant
DX: A04.72 Enterocolitis due to Clostridium difficile, not specified as recurrent (principal); R42 Dizziness and giddiness; R10.30 Lower abdominal pain, unspecified
CPT/HCPCS: 36415; 74177; 80053; 85025; 87493; 96361; 96374; 99284; J2405; Q9967

== ENCOUNTER → 2024-06-13 15:47 | Outpatient (CLI) | payer MEDICARE, SELFPAY ==
--- NOTE | 2024-06-13 15:50 | DI.RAD.S_ITS ---
PROCEDURE: XR TMJ BI INDICATIONS: JAW PAIN TECHNIQUE: Five views of the bilateral TMJ COMPARISON: None. FINDINGS: Bones: No fractures or dislocations. No suspicious bony lesions. Soft tissues: No suspicious soft tissue calcifications. IMPRESSION: Unremarkable bilateral temporomandibular joints Approved by: Rangel Miller M.D. on 06/13/2024 at 16:30
== END ==
PROVIDERS: PCP Physician Assistant; Referring Provider Physician Assistant; Visit Provider Physician Assistant
DX: R68.84 Jaw pain (principal)
CPT/HCPCS: 70330

== ENCOUNTER → 2024-07-23 14:40 | Outpatient (CLI) | payer MEDICARE, SELFPAY ==
[2024-07-23 17:08] LABS: Clostridium Difficile Tox PCR Negative for C. diff (Negative)
== END ==
PROVIDERS: PCP Physician Assistant; Referring Provider Internal Medicine Gastroenterology; Visit Provider Internal Medicine Gastroenterology
DX: A04.72 Enterocolitis due to Clostridium difficile, not specified as recurrent (principal)
CPT/HCPCS: 87493

== ENCOUNTER → 2024-08-08 07:50 | Outpatient (CLI) | payer MEDICARE, SELFPAY ==
[2024-08-08 11:21] LABS: Adenovirus F 40/41 Not Detected (Not Detect); Astrovirus Not Detected (Not Detect); Campylobacter Not Detected (Not Detect); Clostridium difficile toxin AB Not Detected (Not Detect); Cryptosporidium Not Detected (Not Detect); Cyclospora cayetanensis Not Detected (Not Detect); Entamoeba histolytica Not Detected (Not Detect); Enteroaggregative E.coli Not Detected (Not Detect); Enteropathogenic E.coli Not Detected (Not Detect); Enterotoxigenic E.coli It/st Not Detected (Not Detect); Giardia lamblia Not Detected (Not Detect); Norovirus GI/GII Not Detected (Not Detect); Plesiomonsa shigelloides Not Detected (Not Detect); Rotavirus A Not Detected (Not Detect); Salmonella Not Detected (Not Detect); Sapovirus Not Detected (Not Detect); Shiga-like toxin-prod E.coli Not Detected (Not Detect); Shigella/Enteroinvasive E.coli Not Detected (Not Detect); Vibrio Not Detected (Not Detect); Vibrio cholerae Not Detected (Not Detect); Yersinia enterocolitica Not Detected (Not Detect)
== END ==
LOC: LAB 07:51
PROVIDERS: PCP Physician Assistant; Referring Provider Internal Medicine Gastroenterology; Visit Provider Internal Medicine Gastroenterology
DX: R19.7 Diarrhea, unspecified (principal)
CPT/HCPCS: 87507

== ENCOUNTER → 2025-05-11 16:18 | Outpatient (CLI) | payer MEDICARE, SELFPAY ==
--- NOTE | 2025-05-11 16:20 | DI.MG.S_ITS ---
MM screening mammo BI: 05/11/2025. BI-RADS: 2 CLINICAL: 74-year old female for bilateral screening mammogram. Tyrer-Cuzick lifetime risk of 9.5%. No personal or first-degree family history of breast cancer. Current reported family history of breast cancer: maternal aunt and second maternal aunt. PRIOR EXAMS 11/20/2022, 11/16/2021, 07/23/2020, 07/17/2018, MAMMOGRAPHY TECHNIQUE: 2D and 3D (tomosynthesis) digital mammographic views obtained, with additional images as needed for full coverage. Current study was also evaluated with a Computer Aided Detection (CAD) system. DENSITY D. The breasts are extremely dense, which lowers the sensitivity of mammography. MAMMOGRAPHY FINDINGS Right: Benign-appearing calcification noted on the right. There are no suspicious masses, calcifications, or other findings in the breast. No significant change from comparison. Left: No suspicious mass, asymmetry, microcalcification, or other abnormality seen. No significant change from comparison. IMPRESSION: Right * No evidence of malignancy with benign findings. Left * No evidence of malignancy. RECOMMENDATIONS Bilateral * Annual screening mammography. OVERALL ASSESSMENT CATEGORY BI-RADS-2: Benign. The [employer] recommends annual screening mammography beginning at age 40 for women with average risk of breast cancer. ELECTRONICALLY SIGNED: Sabina Paiz M.D. on 05/12/2025 at 12:29:17 PM PT Interpreting Station ID: [id number]
== END ==
LOC: MAMMO 16:19
PROVIDERS: PCP Physician Assistant; Referring Provider Physician Assistant; Visit Provider Physician Assistant
DX: Z12.31 Encounter for screening mammogram for malignant neoplasm of breast (principal); Z80.3 Family history of malignant neoplasm of breast; R92.343 Mammographic extreme density, bilateral breasts
CPT/HCPCS: 77063; 77067

== ENCOUNTER → 2025-07-11 08:48 | Outpatient (CLI) | payer MEDICARE, SELFPAY ==
[2025-07-11 14:50] LABS: Clostridium difficile toxin AB Not Detected (Not Detect); Enteroaggregative E.coli Not Detected (Not Detect); Enteropathogenic E.coli Not Detected (Not Detect); Enterotoxigenic E.coli It/st Not Detected (Not Detect); Plesiomonsa shigelloides Not Detected (Not Detect); Shiga-like toxin-prod E.coli Not Detected (Not Detect)
== END ==
PROVIDERS: PCP Physician Assistant; Referring Provider Internal Medicine Gastroenterology; Visit Provider Internal Medicine Gastroenterology
DX: A04.71 Enterocolitis due to Clostridium difficile, recurrent (principal)
CPT/HCPCS: 87507